=== PATIENT | female | born 1970 | race Caucasian/White ===

== ENCOUNTER 2017-09-20 17:01 | Emergency (ER) | payer OTHER ==
--- NOTE | 2017-09-20 17:35 | ER Document Report ---
ED Medical Screen (RME) - General Chief Complaint: Chest Pain Stated Complaint: CHEST PAIN, LEFT SIDE NUMBNESS Time Seen by Provider: 09/20/17 17:23 Notes: RAPID MEDICAL EVALUATION DISCLOSURE I have seen this patient as part of a Rapid Medical Evaluation and, if applicable, placed any initially appropriate orders. The patient will be seen and fully evaluated, including a full history and physical exam, by a provider ( in Main ED or Fast Track) when a room becomes available. 46-year-old female here with complaints of left-sided chest pain, left arm/leg numbness and weakness that started approximately 3.5 hours ago (2 PM) and has persisted. She has also felt lightheaded and a bit confused. She has no prior history of stroke, brain bleeds, anticoagulant use, but does have a strong family history of stroke. She still has these symptoms now. EXAM Left upper/lower extremity 4/5 motor strength Left upper/lower extremity sensory deficit present Right upper/lower extremity 5/5 motor strength TRAVEL OUTSIDE OF THE [place] IN LAST 30 DAYS: No - Related Data Allergies/Adverse Reactions: latex [Latex] Allergy (Intermediate, Verified 06/25/13 17:42) Hives Past Medical History - Social History Chew tobacco use (# tins/day): No Frequency of alcohol use: None Drug Abuse: None Renal/ Medical History: Denies: Hx Peritoneal Dialysis - Immunizations Hx Diphtheria, Pertussis, Tetanus Vaccination: Yes Physical Exam - Vital signs Vitals: Temp Pulse Resp BP Pulse Ox 97.8 F 91 20 131/88 H 96 09/20/17 17:14 09/20/17 17:14 09/20/17 17:14 09/20/17 17:14 09/20/17 17:14 Course - Vital Signs Vital signs: Temp Pulse Resp BP Pulse Ox 97.8 F 91 20 131/88 H 96 09/20/17 17:14 09/20/17 17:14 09/20/17 17:14 09/20/17 17:14 09/20/17 17:14 Doctor's Discharge - Discharge Referrals: BRADY CORDERO PA-C [Primary Care Provider] - Follow up as needed
--- NOTE | 2017-09-20 17:49 | RADIOLOGY REPORT (SQ) ---
EXAM DESCRIPTION: CT HEAD WITHOUT COMPLETED DATE/TIME: 09/20/2017 5:39 pm REASON FOR STUDY: rme stroke alert tpa/alert COMPARISON: None. TECHNIQUE: Axial images acquired through the brain without intravenous contrast. Images reviewed wi th bone, brain and subdural windows. Images stored on PACS. All CT scanners at this facility use dose modulation, iterative reconstruction, and/or weight based d osing when appropriate to reduce radiation dose to as low as reasonably achievable (ALARA). [facility]: Dose Right [facility]: CareDose [facility]: Dose Right [facility]: Teradose 4D [facility]: Smart ChartITright RADIATION DOSE: CT Rad equipment meets quality standard of care and radiation dose reduction techniq ues were employed. CTDIvol: 53.2 mGy. DLP: 991 mGy-cm. mGy. LIMITATIONS: None. FINDINGS: VENTRICLES: Normal size and contour. CEREBRUM: No masses. No hemorrhage. No midline shift. No evidence for acute infarction. Normal gra y/white matter differentiation. No areas of low density in the white matter. CEREBELLUM: No masses. No hemorrhage. No alteration of density. No evidence for acute infarction. EXTRAAXIAL SPACES: No fluid collections. No masses. ORBITS AND GLOBE: No intra- or extraconal masses. Normal contour of globe without masses. CALVARIUM: No fracture. PARANASAL SINUSES: No fluid or mucosal thickening. SOFT TISSUES: No mass or hematoma. OTHER: No other significant finding. IMPRESSION: NORMAL BRAIN CT WITHOUT CONTRAST. EVIDENCE OF ACUTE STROKE: NO. COMMENT: Pertinent positive or negative findings of the imaging study reported as a CRITICAL EXAM lydia LOERA MD at17:42 on 09/20/2017. Category of Critical Exam: CODE STROKE Quality ID # [id number]: Final reports with documentation of one or more dose reduction techniques (e.g., Au tomated exposure control, adjustment of the mA and/or kV according to patient size, use of iterative reconstruction technique) TECHNICAL DOCUMENTATION: JOB ID: [id number] [employer]- All Rights Reserved Reading location - IP/workstation name: [email or web address]
--- NOTE | 2017-09-20 17:55 | ER Document Report ---
ED General <BARRY CHAN - Last Filed: 09/20/17 21:45> - General Mode of Arrival: Ambulatory Information source: Patient TRAVEL OUTSIDE OF THE [place] IN LAST 30 DAYS: No <KELL LINDSEY - Last Filed: 09/20/17 22:01> - General Chief Complaint: Chest Pain Stated Complaint: CHEST PAIN, LEFT SIDE NUMBNESS Time Seen by Provider: 09/20/17 17:23 Notes: 46 y.o. female presents to the ED with chest tightness and LT arm and leg numbness and weakness that began about 3.5 hours ago. She reports that she was at work when she started feeling nauseous and thought that her blood sugar might have been low so she ate a candy bar but was without relief so she decided to eat fries as something salty to try to relieve her nausea. Pt was still without relief so she decided to eat her lunch, that she brought to work. She states that during her lunch break she began to get dizzy and felt hot then was having trouble holding up her phone in her LT arm and states that she was experiencing numbness to her LT arm and soon began to experience numbness to her LLE. Pt denies any vomiting. digital marketing officer at bedside states that pt had her BP was measured by a pediatric dentist and that her BP was elevated enough that the pediatric dentist thought she should be brought to the ED via EMS. Pt describes her chest tightness as "in the shape of a 'C'". PSHx of partial hysterectomy, appendectomy and cholecystectomy. Pt has a PMHx of anxiety with panick attacks and low blood sugar. Pt reports that she takes wellbutrin, klonopin and 25mg of Amitriptyline. (KELL LINDSEY) - Related Data Allergies/Adverse Reactions: latex [Latex] Allergy (Intermediate, Verified 09/20/17 17:42) Hives Past Medical History - General Information source: Patient - Social History Smoking Status: Former Smoker - quit 5 years ago, vapes now. Chew tobacco use (# tins/day): No Frequency of alcohol use: Occasional Drug Abuse: None Family History: DM Patient has suicidal ideation: No Patient has homicidal ideation: No Neurological Medical History: Reports: Hx Migraine Endocrine Medical History: Reports: Other - Low blood sugar Psychiatric Medical History: Reports: Hx Anxiety - with panic attacks - Immunizations Hx Diphtheria, Pertussis, Tetanus Vaccination: Yes <KELL LINDSEY - Last Filed: 09/20/17 22:01> Review of Systems - Review of Systems Constitutional: See HPI, Other - "feeling hot" EENT: No symptoms reported Cardiovascular: See HPI, Dizziness, Other - chest tightness Respiratory: No symptoms reported Gastrointestinal: No symptoms reported, See HPI, Nausea. denies: Vomiting Genitourinary: No symptoms reported Female Genitourinary: No symptoms reported Musculoskeletal: No symptoms reported Skin: No symptoms reported Hematologic/Lymphatic: No symptoms reported Neurological/Psychological: See HPI, Weakness, Numbness <KELL LINDSEY - Last Filed: 09/20/17 22:01> Physical Exam <BARRY CHAN - Last Filed: 09/20/17 21:45> <KELL LINDSEY - Last Filed: 09/20/17 22:01> - Vital signs Vitals: Temp Pulse Resp BP Pulse Ox 97.8 F 91 20 131/88 H 96 09/20/17 17:14 09/20/17 17:14 09/20/17 17:14 09/20/17 17:14 09/20/17 17:14 - Notes Notes: Physical Exam: General: Alert, appears well. HEENT: Normocephalic. Atraumatic. PERRL. Extraocular movements intact. Oropharynx clear. Neck: Supple. Non-tender. No bruise to neck. Respiratory: No respiratory distress. Clear and equal breath sounds bilaterally. Cardiovascular: Regular rate and rhythm. No chest wall tenderness. Abdominal: Somewhat obese. Some epigastric tenderness to palpation. No distension. Normal Bowel Sounds. Back: Non-tender. No deformity or step off. Extremities: Moves all four extremities. Upper extremities: RUE strength and coordination normal. LUE strength 4/5, in the LUE finger to nose test the pt's finger went to the side before finding her nose. Lower extremities: Normal dorsifelxion and plantar flexion bilaterally. Neurological: Normal cognition. AAOx3. Talking rapidly, stuttering while speaking. Psychological: talking rapidly, anxious. Skin: Warm. Dry. Normal color. (KELL LINDSEY) Course - Laboratory Result Diagrams: 09/20/17 18:00 09/20/17 18:00 - Diagnostic Test Radiology reviewed: Image reviewed, Reports reviewed - This x-ray and CT of the head without contrast are both unremarkable. MRI of the brain wasnegative for acute ischemic problems, and essentially negative except for minimal nonspecific white matter change which could be due to prior migraine events. - EKG Interpretation by Me EKG shows normal: Sinus rhythm, [place], Intervals, QRS Complexes, ST-T Waves Rate: Normal - 89 Rhythm: NSR [place]/QRS: Left axis deviation <BARRY CHAN - Last Filed: 09/20/17 21:45> - Laboratory Result Diagrams: 09/20/17 18:00 09/20/17 18:00 <KELL LINDSEY - Last Filed: 09/20/17 22:01> - Re-evaluation Re-evalutation: 09/20/17 18:59 The patient is completely alert and oriented, she is quite anxious and has a history of anxiety and panic disorder. The only neurological finding is a slightly lessened brick off bearer strength to the left hand and slightly decrease in her ability to touch her index finger to nose without looking. There is no weakness in the lower extremity. There is no facial weakness or tongue deviation. Due to the very minimal symptoms and now at least 3-1/2 hours since onset, she is not a TPA candidate. 09/20/17 21:34 The patient continues to have a numbness to her left arm without demonstrable motor deficits at this time. The MRI of the brain was essentially negative except for minimal nonspecific white matter change could be related to her prior migraine headache history. (BARRY CHAN) - Vital Signs Vital signs: Temp Pulse Resp BP Pulse Ox 98.8 F 90 13 132/91 H 97 09/20/17 17:46 09/20/17 18:00 09/20/17 21:01 09/20/17 21:01 09/20/17 21:01 - Laboratory Laboratory results interpreted by me: 09/20/17 18:00 Glucose 112 H AST 39 H ALT 70 H Creatine Kinase 150 H Discharge <BARRY CHAN - Last Filed: 09/20/17 21:45> <KELL LINDSEY - Last Filed: 09/20/17 22:01> - Discharge Clinical Impression: Numbness and tingling of left arm and leg Condition: Stable Disposition: HOME, SELF-CARE Additional Instructions: Your symptoms of numbness and weakness to the left upper extremity and numbness to the left lower extremity could not be explained by CT scan and MRI of the brain today. At this time we recommend that you take one aspirin daily until you can be evaluated by a neurologist for further recommendations. Follow-up with your primary care provider tomorrow to review your symptoms and findings from the emergency room visit. RETURN TO THE EMERGENCY ROOM IF ANY NEW OR WORSENING SYMPTOMS. Referrals: BRADY CORDERO PA-C [COMMUNITY BASED STAFF] - Follow up as needed Scribe Attestation: 09/20/17 21:44 I personally performed the services described in the documentation, reviewed and edited the documentation which was dictated to the scribe in my presence, and it accurately records my words and actions. (BARRY CHAN) Scribe Documentation - Scribe Written by Pati:: Pati Cruz 09/20/17 521 acting as scribe for :: Michael <KELL LINDSEY - Last Filed: 09/20/17 22:01>
--- NOTE | 2017-09-20 17:58 | RADIOLOGY REPORT (SQ) ---
EXAM DESCRIPTION: CHEST SINGLE VIEW COMPLETED DATE/TIME: 09/20/2017 5:49 pm REASON FOR STUDY: rme stroke alert tpa/alert COMPARISON: 06/25/2013 EXAM PARAMETERS: NUMBER OF VIEWS: One view. TECHNIQUE: Single frontal radiographic view of the chest acquired. RADIATION DOSE: NA LIMITATIONS: None. FINDINGS: LUNGS AND PLEURA: No opacities, masses or pneumothorax. No pleural effusion. MEDIASTINUM AND HILAR STRUCTURES: No masses. Contour normal. HEART AND VASCULAR STRUCTURES: Heart normal in size. Normal vasculature. BONES: No acute findings. HARDWARE: None in the chest. OTHER: No other significant finding. IMPRESSION: NO ACUTE RADIOGRAPHIC FINDING IN THE CHEST. TECHNICAL DOCUMENTATION: JOB ID: [id number] [employer]- All Rights Reserved Reading location - IP/workstation name: [email or web address]
[2017-09-20 18:11] LABS: ABSOLUTE BASOPHILS # (AUTO) 0.1 10^3/uL (0.0-0.2); ABSOLUTE EOSINOPHILS # (AUTO) 0.1 10^3/uL (0.0-0.6); ABSOLUTE MONOCYTES (AUTO) 0.5 10^3/uL (0.1-1.4); ABSOLUTE NEUT (AUTO) 4.6 10^3/uL (1.7-8.2); BASOPHILS % (AUTO) 1.5 % (0-2); HEMATOCRIT 42.9 % (36.0-47.0); HEMOGLOBIN 14.7 g/dL (12.0-15.5); LYMPHOCYTES % (AUTO) 27.4 % (13-45); MEAN CORPUSCULAR HEMOGLOBIN 29.4 pg (27.0-33.4); MEAN CORPUSCULAR HGB CONC 34.3 g/dL (32.0-36.0); MEAN CORPUSCULAR VOLUME 86 fl (80-97); MONOCYTES % (AUTO) 6.7 % (3-13); PLATELET COUNT 247 10^3/uL (150-450); RED CELL DISTRIBUTION WIDTH 13.2 % (11.5-14.0); SEGMENTED NEUTROPHILS % (AUTO) 62.4 % (42-78); TOTAL CELLS COUNTED % (AUTO) 100 %; WHITE BLOOD COUNT 7.3 10^3/uL (4.0-10.5)
[2017-09-20 18:18] LABS: INTERNATIONAL RATION (INR) 0.81; PARTIAL THROMBOPLASTIN TIME 26.7 SEC (23.5-35.8); PROTHROMBIN TIME 11.7 SEC (11.4-15.4)
[2017-09-20 18:28] LABS: ALANINE AMINOTRANSFERASE 70 U/L (9-52); ALBUMIN 4.2 g/dL (3.5-5.0); ALKALINE PHOSPHATASE 83 U/L (38-126); ANION GAP 9 (5-19); ASPARTATE AMINO TRANSFERASE 39 U/L (14-36); BILIRUBIN,DIRECT 0.2 mg/dL (0.0-0.4); BILIRUBIN,TOTAL 0.2 mg/dL (0.2-1.3); BLOOD UREA NITROGEN 8 mg/dL (7-20); CALCIUM 9.5 mg/dL (8.4-10.2); CARBON DIOXIDE 29 mmol/L (22-30); CHLORIDE 104 mmol/L (98-107); CREATINE KINASE 150 U/L (30-135); GLUCOSE 112 mg/dL (75-110); POTASSIUM 4.3 mmol/L (3.6-5.0); SODIUM 141.8 mmol/L (137-145); TOTAL PROTEIN 7.2 g/dL (6.3-8.2)
[2017-09-20 18:40] LABS: CREATINE KINASE MB 1.08 ng/mL (<4.55)
[2017-09-20 18:42] LABS: TROPONIN I < 0.012 ng/mL
--- NOTE | 2017-09-20 21:02 | RADIOLOGY REPORT (SQ) ---
EXAM DESCRIPTION: MRI HEAD WITHOUT COMPLETED DATE/TIME: 09/20/2017 8:52 pm REASON FOR STUDY: Left sided weakness and numbness COMPARISON: None. TECHNIQUE: Multiplanar imaging includes non-contrasted T1, T2, FLAIR, and diffusion with ADC map seq uences. Images stored on PACS. LIMITATIONS: None. FINDINGS: ANATOMY: No anomalies. Normal vascular flow voids. Pituitary fossa normal. CSF SPACES: Normal in size and contour. No hemorrhage. CEREBRUM: Sulci and gyri normal in size and contour. A few scattered foci of hyperintense white malick er signal on FLAIR imaging. No evidence of hemorrhage, mass, or extraaxial fluid collection. POSTERIOR FOSSA: No signal alteration. No hemorrhage. No edema, masses or mass effect. Internal mindy tory canals, cerebello-pontine angles, mastoids normal. DIFFUSION IMAGING: Negative for acute or sub-acute infarction. ORBITS: No masses. Globes normal. PARANASAL SINUSES: No fluid levels. Mucosa normal. OTHER: No other significant finding. IMPRESSION: NO ACUTE ISCHEMIA, HEMORRHAGE, OR MASS LESION. MINIMAL NONSPECIFIC WHITE MATTER CHANGE CAN BE SEQUELA TO ANY PRIOR INFECTIOUS OR INFLAMMATORY PROCESS INCLUDING MIGRAINES. EVIDENCE OF ACUTE STROKE: NO. TECHNICAL DOCUMENTATION: JOB ID: [id number] [employer]- All Rights Reserved Reading location - IP/workstation name: [email or web address]
[2017-09-20] MEDS ORDERED: ASPIRIN 325 MG TABLET PO ONE (21:39)
[2017-09-20 22:02] VITALS: BP 132/86
--- NOTE | 2017-09-20 22:10 | EKG REPORT ---
SEVERITY:- OTHERWISE NORMAL ECG - SINUS RHYTHM BORDERLINE LEFT AXIS DEVIATION : Confirmed by: Smitha Schulz MD 20-Sep-2017 22:09:13
== END 2017-09-20 22:02 | disposition home or self-care (01) ==
LOC: ER 17:01
DX: R20.0 Anesthesia of skin (principal); R20.2 Paresthesia of skin; R07.89 Other chest pain; R53.1 Weakness; R11.0 Nausea; R42 Dizziness and giddiness; F17.290 Nicotine dependence, other tobacco product, uncomplicated; F41.9 Anxiety disorder, unspecified; F41.0 Panic disorder [episodic paroxysmal anxiety]; Z79.899 Other long term (current) drug therapy; Z91.040 Latex allergy status; R10.816 Epigastric abdominal tenderness; Z86.69 Personal history of other diseases of the nervous system and sense organs
CPT/HCPCS: 36415; 70450; 70551; 71045; 80053; 82550; 82553; 84484; 85025; 85610; 85730; 93005; 93010; 99285